=== PATIENT | male | born 1980 | race Caucasian/White ===

== ENCOUNTER 2018-12-31 04:11 | Emergency (ER) | payer MEDICAID ==
[~2018-12-31] VITALS: Ht 188 cm; Wt 81.6 kg
--- NOTE | 2018-12-31 04:31 | NUR ---
PT BIBSELF C/O INFECTION IN BOTH FEET X 2 DAYS. PT AXO4. REDNESS NOTED ON BILATERAL FEET. PT AMBULATORY WITH STEADY GAIT. 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 WILL CARRY OUT ORDERS AND CONTINUE TO MONITOR.
[2018-12-31] MEDS ORDERED: VANCOMYCIN 1 GM in IV D5W 250 ML IV ONE (05:00)
[2018-12-31] MEDS ORDERED: CLINDAMYCIN HCL 150 MG CAPSULE PO ONE ×2 (05:00→05:01)
[2018-12-31] MEDS ORDERED: TDAP [DIPH/PERTUSSIS/TET] 0.5 ML VIAL IM ONE ×2 (05:00→05:01)
[2018-12-31] MEDS ORDERED: VANCOMYCIN 1 GM VIAL ONE (05:01)
[2018-12-31 06:49] VITALS: BP 125/66
--- NOTE | 2018-12-31 06:49 | NUR ---
Patient discharged to home in stable condition. Written and verbal after care instructions given. Patient verbalizes understanding of instruction.IV removed. Catheter intact and site benign. Pressure and 4x4 applied to site. No bleeding noted.
== END 2018-12-31 06:49 | disposition home or self-care (01) ==
LOC: ER 04:15
DX: L03.116 Cellulitis of left lower limb (principal); L03.115 Cellulitis of right lower limb; Z85.72 Personal history of non-Hodgkin lymphomas
CPT/HCPCS: 90471; 90715; 96365; 99283; J3370